=== PATIENT | female | born 1960 | race Caucasian/White ===

== ENCOUNTER 2017-12-09 21:55 | Emergency (ER) | payer OTHER ==
[~2017-12-09] VITALS: Ht 167.6 cm; Wt 120.7 kg
[2017-12-09 22:01] VITALS: TEMP 36.8; Ht 167.6 cm; Wt 120.7 kg
[2017-12-09] MEDS ORDERED: CEPHALEXIN 500MG HOME PACK 1 EA BTL PO ONE (22:15)
[2017-12-09] MEDS ORDERED: FRANKINCENSE PO (22:40)
[2017-12-09] MEDS ORDERED: PROP40TA5 PO (22:40)
[2017-12-09] MEDS ORDERED: CEPH500C2 PO (22:59)
[2017-12-09] MEDS ORDERED: ONDA4TAB10 SL (22:59)
--- NOTE | 2017-12-09 22:59 | EMERGENCY ROOM VISIT NOTE ---
History First contact with patient: 22:05 Chief Complaint: WOUND INFECTION Stated Complaint: SWOLLEN/INFECTED RING FINGER L HAND Nursing Triage Summary: pt reports noted sore on L ring finger at 1100 today finger has become red swollen and tender,unable to remove rings at this time History of Present Illness The patient is a 57 year old female who presents to the Emergency Room with complaints of left ring finger pain and swelling for the past day and now cannot take her rings off. Patient noticed a small blister to her ring finger that has gotten progressively worse throughout the day. No recent antibiotics. No history of MRSA. Patient denies injury, fever, chills, nausea, vomiting, numbness, tingling. Review of Systems A 6 system review of systems was completed with positives and pertinent negatives listed in the HPI. Past Medical/Surgical History Essential tremor Social History Smoking Status: Never Smoker Smokeless Tobacco Use: No Alcohol Use: none Drug Use: none Marital Status: Housing Status: lives with family Occupation Status: employed Current/Historical Medications Scheduled Propranolol Hcl (Propranolol Hcl), 40 MG PO BID [Frankincense], 1 CAP PO BID Physical Exam Vital Signs Date Time Temp Pulse Resp B/P (MAP) Pulse Ox O2 Delivery O2 Flow Rate FiO2 12/09/17 22:01 36.8 69 18 160/91 98 Room Air Physical Exam VITALS: Vitals are noted on the nurse's note and reviewed by myself. Vital signs hypertensive. GENERAL: Pleasant female anxious-appearing, in no acute distress, nondiaphoretic , well-developed well-nourished. SKIN: Capillary reflex less than 2 seconds. HEENT: Normocephalic. PERRLA. EOMI. Nares patent. Mucous membranes moist. Neck is supple without nuchal rigidity. HEART: Regular rate and rhythm LUNGS: Clear to auscultation bilaterally without wheezes, rales or rhonchi. No retractions or accessory muscle use. ABDOMEN: Positive bowel sounds x 4. Normal tympanic percussion. Soft, nontender, without masses or organomegaly. Rai sign negative. No guarding or rebound tenderness. MUSCULOSKELETAL: No gross musculoskeletal defects. Left ring finger edematous and erythematous with small blister to the lateral aspect of the finger and unable to remove 3 rings. Patient can extend and flex the finger. Sensation is intact. No signs of tendon involvement. No lymphangitis. NEURO: Patient was alert and oriented to person place and time. Normal sensation to light and sharp touch. No focal neurological deficits. Medical Decision & Procedures ED Course Prior records reviewed and summarized as above. Triage Nursing notes reviewed. The patient's history was concerning for swelling and redness of the skin. Differential diagnosis: Etiologies such as cellulitis, abscess, MRSA infection, herpes, necrotizing fasciitis, dermatitis, drug eruption, as well as others were entertained.. Physical examination: The physical examination was consistent with cellulitis and unable to remove rings ER treatment provided: Rings removed from nursing. Wound care by nursing On reassessment the patient felt better. Diagnostics interpreted by me: Deferred This appears to be cellulitis and ring removal. Patient's finger was edematous and unable to remove rings. This is done by nursing. They used a ring removal saw . Rings are given back to the patient. Patient was started on antibiotics. She is advised follow-up family care in a few days for wound recheck or here in the ER sooner for spreading infection, fevers, difficulty bending the finger, worsening signs or symptoms or as needed. Patient was able to fully extend and flex the finger. Sensation was intact. No lymphangitis. She was afebrile and nontoxic. By the evaluation outlined above emergent etiologies such as abscess, necrotizing fasciitis, as well as others were deemed relatively unlikely. The pt informed about the findings as listed above. All questions were answered and pleased with the treatment. Return instructions were outlined and the patient was discharged in stable condition. Outpatient prescription management: Keflex Referral: The patient was referred back to primary care physician for follow-up in 2 to 3 days for a recheck of the current condition. Medical Decision As above Medication Reconcilliation Current Medication List: was personally reviewed by me Blood Pressure Screening Patient's blood pressure: Elevated blood pressure Blood pressure disposition: Elevated BP felt to be situational Impression Primary Impression: Cellulitis of finger of left hand Additional Impression: Ring removal Departure Information Dispostion Home / Self-Care Condition GOOD Referrals No Doctor, Assigned (PCP) Patient Instructions [facility] [place] Additional Instructions Do not wear rings to this finger until infection has cleared and swelling has resolved. Cephalexin(Keflex) 500mg: Take one pill four times daily for 10 days for your skin infection. All antibiotics can cause diarrhea. If this occurs and you feel worse or it does not resolve in 1-2 days follow up with your doctor or return to the Emergency Department as this could be signs of serious underlying problems. Any medication can cause an allergic reaction, stop the pills immediately and return to the ER for rash, hives, breathing difficulties, or swelling. Antibiotic ointment and bandage to the areas until healed. Ibuprofen(Motrin, Advil) may be used for fever or pain. Use 600mg every six hours as needed. Take with food. Avoid using more than 2400mg in a 24 hour period. Do not use 2400mg per day for more than three consecutive days without physician direction. Prolonged inappropriate use can lead to stomach upset or ulcers. (AND/OR) Acetaminophen(Tylenol) may be used for fever or pain. Use 1000mg every six hours as needed. Avoid using more than 3000mg in a 24 hour period. Rest and drink plenty of fluids. Continue current medications. Return to the ER for severe pain, persistent fevers, spreading redness, or any worsening of your condition. Follow up with your primary physician within 2-3 days for a recheck of the current condition. Problem Qualifiers
[2017-12-09] MEDS ORDERED: ONDANSETRON HOME PACK 4MG OD TAB PO ONE (23:00)
[2017-12-09 23:16] VITALS: BP 149/99; PULSE 63; O2SAT 96
== END 2017-12-09 23:18 | disposition home or self-care (01) ==
LOC: C.EDB 21:56 → C.EDA 23:18
DX: L03.012 Cellulitis of left finger (principal)